=== PATIENT | female | born 1945 | race Caucasian/White ===

== ENCOUNTER 2016-05-25 06:31 | Day surgery (SDC) | payer OTHER, BC ==
[2016-05-22 12:01] VITALS: BMI 21.4
--- NOTE | 2016-05-22 20:12 | HP ---
[facility] - Chief Complaint Chief Complaint: The patient is admitted to investigate postmenopausal bleeding. 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: Alzheimer's, CVA, Dementia, Migraine, Multiple Sclerosis, Peripheral Neuropathy, Parkinson's, Seizure, Syncope, TIA, Vertigo, Other Cardiovascular: No: AFIB, Aneurysm, Aortic Insufficiency, Aortic Stenosis, CAD, CHF, Deep Vein Thrombosis, HTN, Hyperlipdemia, VT, Mitral Insufficiency, Mitral Stenosis, Murmur, Pulmonary Hypertension, Other Pulmonary: No: Asthma, Bronchitis, Cancer, COPD, O2 Dependent, Pneumonia, Previously Intubated, Pulmonary Embolus, Pulmonary Fibrosis, Sleep Apnea, Other Gastrointestinal: No: Ascites, Cancer, Constipation, Crohn's Disease, Diverticulitis, Diverticulosis, Esophageal Varices, Gastritis, GERD, GI Bleed, Hemorrhoids, Hiatal Hernia, Inflamatory Bowel Disease, Irritable Bowel Disease, Pancreatitis, Peptic Ulcer Disease, Ulcerative Colitis, Other Hepatobiliary: No: Cirrhosis, Cholelithiasis, Cholecystitis, Choledocholithiasis , Hepatitis A, Hepatitis B, Hepatitis C, Other Renal/: No: Renal Failure, Renal Inusuff, BPH, Cancer, Hematuria, Hemodialysis , Neurogenic Bladder, Renal Calculi, UTI, Other Reproductive: No: Ectopic , Endometriosis, Fibroids, PID, Polycystic Ovary Syndrome, Postmenopausal, Other Heme/Onc: No: Anemia, B12 Deficiency, Bleeding Disorder, Cancer, Current Chemotherapy, Current Radiation Therapy, Hemochromatosis, Hypercoaguable State, Myeloproliferative Synd, Sickle Cell Disease, Sickle Cell Trait, Thrombocytopenia, Other Infectious Disease: No: AIDS, C-Diff, Herpes Zoster, HIV, MRSA, STD's, Tuberculosis, VREF, Other Musculoskeletal: No: Bursitis, Chronic low back pain, Hemiparesis, Hemiplegia, Osteoarthritis, Paraplegia, Other Rheumatology: No: Fibromyalgia, Gout, Lupus, Rheumatoid Arthritis, Sarcoidosis, Vasculitis, Other ENT: No: Allergic Rhinitis, Sinusitis, Other Endocrine: No: Guanako's Disease, Cristhian's Disease, Diabetes Insipidus, Diabetes Mellitus, Hyperparathyroidism, Hyperthyroidism, Hypothyroidism, Osteopenia, SIADH, Other Dermatology: No: Basal Cell, Cellulitis, Eczema, Melanoma, Psoriasis, Squamous Cell, Other - Current Medications Current Medications: Home Medications Medication Instructions Recorded Ascorbic Acid [Vitamin C -] 500 mg PO DAILY 11/04/12 Calcium Carbonate [Calcium] 500 mg PO DAILY 11/04/[address] 2Kcl/Chondroitin St 1 each PO DAILY 11/04/12 [Glucosamine Chondroitin Caplet] Famotidine [Pepcid -] 20 mg PO DAILY #30 tablet 01/12/14 Krill Oil 500 mg PO DAILY 12/03/15 L.acidoph,Paracasei, B.lactis 1 each PO DAILY 12/03/15 [Probiotic] Multivitamin,Ther and Minerals 1 tab PO DAILY 12/03/15 [Vitamin and Minerals] Satellite Physical Exam - Physical Examination General Appearance: Well Nourished, Well Developed, Alert & Oriented x3 ENT: Clear, No Discharge, No masses Lung: Clear to auscultation Heart: Regular rate & rhythm, Normal S1, Normal S2 Breasts: Soft, Non-Tender, No masses bilaterally Abdomen: Soft, No tenderness, No CVA Extremities: No edema, No tenderness/swelling Pelvic Exam: Within normal limits External Genitalia, Within normal limits Vagina, Within normal limits Cervix, Within normal limits Uterus, Within normal limits [facility] Neu[facility]: Intact, Alert, Oriented Satellite Impression/Plan - Impression/Plan Impression: Postmenopausal bleeding Operative Procedure: Hysteroscopy and D/C Date to be Performed: 05/25/16
[2016-05-25 06:59] VITALS: TEMP 97.9
[2016-05-25] MEDS ORDERED: LIDOCAINE HCL/PF 2% SDV 5ML VIAL ONE (07:46)
[2016-05-25] MEDS ORDERED: PROPOFOL 20 ML ONE (07:46)
[2016-05-25] MEDS ORDERED: MIDAZOLAM HCL 2 MG/2 ML SINGLE DOSE VIAL ONE (07:46)
[2016-05-25] MEDS ORDERED: KETOROLAC TROMETHAMINE 30 MG/1 ML VIAL ONE (08:19)
[2016-05-25] MEDS ORDERED: DEXAMETHASONE SOD PHOSPHATE 4 MG/1 ML VIAL ONE (08:19)
[2016-05-25] MEDS ORDERED: ONDANSETRON 4 MG/2 ML VIAL IVPUSH PRN (08:33)
[2016-05-25] MEDS ORDERED: ACETAMINOPHEN 325 MG TABLET (FP) PO PRN (08:33)
[2016-05-25] MEDS ORDERED: oxyCODONE HCL 5 MG TABLET PO PRN (08:33)
[2016-05-25] MEDS ORDERED: LACTATED RINGERS SOLUTION 1,000 ML IV SCH (08:45)
[2016-05-25] MEDS ORDERED: ACETAMINOPHEN 325 MG TABLET (FP) ONE (09:00)
[2016-05-25 11:18] VITALS: BP 148/86; PULSE 72
--- NOTE | 2016-05-25 11:21 | OP ---
DATE OF OPERATION: 05/25/2016 PREOPERATIVE DIAGNOSIS: Postmenopausal bleeding. POSTOPERATIVE DIAGNOSIS: Postmenopausal bleeding. OPERATIVE PROCEDURE: Hysteroscopy, dilation and curettage, endocervical curettage. SURGEON: Mercy Molina MD ANESTHESIA: MAC. ANESTHESIOLOGIST: Gayatri Mota MD ESTIMATED BLOOD LOSS: 5 mL DESCRIPTION OF PROCEDURE: The patient was brought to the operating room, placed in the supine position, given anesthesia by Dr. Mota, placed in the lithotomy position, prepped and draped in the usual manner. The patient was examined. The uterus was noted to be within normal limits for the patient's age. The speculum was placed into the vagina after the vagina and the vulva were prepped and draped. The anterior lip of the cervix was grasped with a tenaculum. The uterus was sounded to 7 cm. The cervix was dilated with Robbins dilators. Hysteroscopy was performed. Hysteroscopy revealed an atrophic endometrium. After this was accomplished, a D and C was carried out with a small curette. Scant tissue was obtained. This was followed by an endocervical curettage. Again, scant tissue was obtained. The patient tolerated the procedures well. Her vital signs were stable. Hemostasis was good. She was then transferred to the recovery room in good condition. MERCY MOLINA M.D. LIBRA/[id number]
--- NOTE | 2016-05-27 13:39 | PATH ---
Surgical Pathology Report Patient Name: UNIQUE RIVRES [facility]. Rec. #: [id number] /Age/Gender: 1945 (Age: 71) / F Account: [id number] Location: [facility] SURGICAL Taken: 05/25/2016 Received: 05/25/2016 Reported: 05/27/2016 Physicians: Arturo Molina M.D. Specimen(s) Received A: ENDOMETRIAL CURETTINGS B: ENDOCERVICAL CURETTINGS Clinical History Postmenopausal bleeding Final Diagnosis A. ENDOMETRIUM, CURETTAGE: MINUTE STRIP OF ATROPHIC ENDOMETRIUM. FRAGMENTS OF BENIGN SQUAMOUS EPITHELIUM WITH ATROPHIC CHANGES. FRAGMENTS OF BENIGN ENDOCERVICAL TISSUE. B. ENDOCERVIX, CURETTAGE: FRAGMENTS OF BENIGN SQUAMOUS EPITHELIUM WITH ATROPHIC CHANGES. Comment: Immunohistochemical stains for p16 and Ki67 performed at [place], [place] ([id number]) on block A1 and interpreted at [facility] show negative p16 staining and no increased Ki67 stain supporting atrophic changes. Electronically Signed James Jimenez M.D. Gross Description A. Received in formalin, labeled "endometrial curettings" is a 0.4 x 0.3 x 0.1 cm aggregate of florian-brown soft tissue fragments. The formalin is filtered and the specimen is entirely submitted in one cassette. B. Received in formalin, labeled "endocervical curettings" is a 0.2 x 0.2 x 0.1 cm aggregate of florian soft tissue fragments. The formalin is filtered and the specimen is entirely submitted in one cassette. 05/25/201605/25/2016
== END 2016-05-25 11:18 | disposition home or self-care (01) ==
LOC: JASU-SURG 06:31
PROVIDERS: ATTEND Obstetrics & Gynecology
PROC: 0UDB8ZX Extraction of Endometrium, Via Natural or Artificial Opening Endoscopic, Diagnostic (ICD-10-PCS; principal; 2016-05-25 08:00)
DX: N95.0 Postmenopausal bleeding (principal)
CPT/HCPCS: 86850; 86900; 86901; 88305-TC; 94760

== ENCOUNTER 2018-03-30 07:44 | Day surgery (SDC) | payer OTHER, BC ==
[2018-03-28 15:47] VITALS: BMI 21.9
[2018-03-30 09:30] VITALS: TEMP 97.5
[2018-03-30 09:52] VITALS: PULSE 78
[2018-03-30 10:14] VITALS: BP 131/75
--- NOTE | 2018-03-31 15:47 | PATH ---
Surgical Pathology Report Patient Name: UNIQUE RIVERS [facility]. Rec. #: [id number] /Age/Gender: 1945 (Age: 73) / F Account: [id number] Location: [facility]-ENDOSCOPY Taken: 03/30/2018 Received: 03/30/2018 Reported: 03/31/2018 Physicians: Minor Clemente M.D. Specimen(s) Received A: BX 2ND PORTION DUODENUM AND DUODENAL BULB B: BX ANTRUM C: BX BODY POLYP Clinical History Abdominal pain, dyspepsia, heartburn Postoperative diagnosis: GERD, gastric polyp Final Diagnosis A. DUODENUM, SECOND PORTION AND DUODENAL BULB, BIOPSY: DUODENAL MUCOSA WITH MILD CHRONIC DUODENITIS AND MILD CHAYO'S GLAND HYPERPLASIA. B. STOMACH, ANTRUM, BIOPSY: GASTRIC ANTRAL MUCOSA WITH MILD CHRONIC GASTRITIS. IMMUNOHISTOCHEMICAL STAIN FOR H. PYLORI IS NEGATIVE. C. STOMACH, BODY, POLYP, BIOPSY: FUNDIC GLAND POLYP. IMMUNOHISTOCHEMICAL STAIN FOR H. PYLORI IS NEGATIVE. Electronically Signed Beatriz Wu M.D. Gross Description A. Received in formalin, labeled "biopsy second portion of duodenum and duodenal bulb" are 4 florian, irregular portions of soft tissue ranging from 0.2-0.3 cm. in greatest dimension. The specimens are submitted in toto in one cassette. B. Received in formalin, labeled "biopsy antrum" is a florian, irregular portion of soft tissue measuring 0.4 cm. in greatest dimension. The specimen is submitted in toto in one cassette. C. Received in formalin, labeled "biopsy gastric body polyp" are 3 florian, irregular portions of soft tissue ranging from 0.2-0.3 cm. in greatest dimension. The specimens are submitted in toto in one cassette. DL/03/30/2018 saudi03/30/2018
== END 2018-03-30 10:45 | disposition home or self-care (01) ==
LOC: JASU-ENDO 07:44
PROVIDERS: ATTEND Internal Medicine Gastroenterology
PROC: 0DB68ZX Excision of Stomach, Via Natural or Artificial Opening Endoscopic, Diagnostic (ICD-10-PCS; 2018-03-30)
PROC: 0DB98ZX Excision of Duodenum, Via Natural or Artificial Opening Endoscopic, Diagnostic (ICD-10-PCS; principal; 2018-03-30 08:45)
DX: K29.80 Duodenitis without bleeding (principal); K31.89 Other diseases of stomach and duodenum; K29.50 Unspecified chronic gastritis without bleeding; K31.7 Polyp of stomach and duodenum; K21.0 Gastro-esophageal reflux disease with esophagitis
CPT/HCPCS: 88305-TC; 88342-TC

== ENCOUNTER 2021-04-15 04:39 | Day surgery (SDC) | payer OTHER, BC ==
[2021-04-09 14:35] VITALS: BMI 22.4
[2021-04-15 08:58] VITALS: TEMP 100
[2021-04-15 09:41] VITALS: BP 152/86; PULSE 75
== END 2021-04-15 09:50 | disposition home or self-care (01) ==
LOC: JASU-ENDO 04:39
PROVIDERS: ATTEND Internal Medicine Gastroenterology
PROC: 0DBK8ZX Excision of Ascending Colon, Via Natural or Artificial Opening Endoscopic, Diagnostic (ICD-10-PCS; 2021-04-15)
PROC: 0DBL8ZX Excision of Transverse Colon, Via Natural or Artificial Opening Endoscopic, Diagnostic (ICD-10-PCS; principal; 2021-04-15 08:00)
DX: Z12.11 Encounter for screening for malignant neoplasm of colon (principal); D12.2 Benign neoplasm of ascending colon; D12.3 Benign neoplasm of transverse colon; K57.30 Diverticulosis of large intestine without perforation or abscess without bleeding; K63.89 Other specified diseases of intestine; Z86.010 Personal history of colon polyps; Z80.0 Family history of malignant neoplasm of digestive organs
CPT/HCPCS: 88305-TC